=== PATIENT | female | born 1955 | race Caucasian/White ===

== ENCOUNTER 2018-09-21 14:27 | Day surgery (SDC) | payer OTHER ==
[~2018-09-21 14:27] MED LIST: DEXAMETHASONE INJ 10 MG/ML VIAL IV ONE; LIDOCAINE 1% 10 ML VIAL INJ ONE; PROPOFOL 200 MG/20 ML VIAL IV ONE; SODIUM CHLORIDE 0.9% 50 ML VIAL INJ ONE; ceFAZolin SODIUM 1 GM VIAL IVPB ONE; raNITIdine HCL INJ 25 MG/ML VIAL IV ONE
[2018-09-21] MEDS ORDERED: BUPIVACAINE 0.5% W/EPI 30 ML VIAL INJ ONE (14:36)
[2018-09-21] MEDS ORDERED: HYDROmorphone HCL INJ 2 MG/ML VIAL ONE ×2 (14:44→17:00)
[2018-09-21] MEDS ORDERED: SUGAMMADEX SODIUM 200 MG/2 ML VIAL IV ONE (14:44)
[2018-09-21] MEDS ORDERED: ROCURONIUM BROMIDE 10 MG/ML VIAL ONE (14:45)
[2018-09-21] MEDS ORDERED: MIDAZOLAM INJ 2 MG/2 ML VIAL ONE (14:45)
[2018-09-21] MEDS ORDERED: SCOPOLAMINE PATCH 1.5MG 1 EA TD ONE (14:47)
[2018-09-21] MEDS ORDERED: SODIUM CHLORIDE 0.9% 50 ML VIAL ONE (14:50)
[2018-09-21] MEDS ORDERED: ELECTROLYTE-A 1,000 ML IVS ONE (15:10)
[2018-09-21] MEDS ORDERED: ceFAZolin SODIUM 1 GM VIAL INJ ONE (15:15)
[2018-09-21] MEDS ORDERED: SODIUM CHLORIDE 0.9% 1,000 ML BAG IVS ONE (15:40)
[2018-09-21] MEDS ORDERED: KETAMINE HCL 100 MG/ML VIAL ONE (15:50)
[2018-09-21] MEDS ORDERED: SODIUM CHLORIDE 0.9% 1000ML 1,000 ML ONE (15:59)
[2018-09-21] MEDS ORDERED: KETOROLAC TROMETHAMINE INJ 30 MG/ML VIAL ONE (16:27)
[2018-09-21] MEDS ORDERED: MEPERIDINE HCL 50 MG/ML VIAL ONE (16:48)
[2018-09-21] MEDS ORDERED: LACTATED RINGERS 1,000 ML ONE (16:51)
[2018-09-21 18:11] VITALS: O2SAT 100
[2018-09-21 18:38] VITALS: BP 117/70; TEMP 98.2
--- NOTE | 2018-09-22 10:33 | OP ---
DATE OF PROCEDURE: 09/21/18 PREOPERATIVE DIAGNOSIS: Acute appendicitis. POSTOPERATIVE DIAGNOSIS: Acute appendicitis. PROCEDURE: Laparoscopic appendectomy. SURGEON: Rex Workman MD ANESTHESIA: General. FINDINGS: Acute suppurative nonperforated appendix. COMPLICATIONS: None. ESTIMATED BLOOD LOSS: Minimal. SPECIMEN: .Appendix. PLAN: Discharge. INDICATION: The patient is brought to the Emergency Room after being identified as having acute appendicitis on a CT scan that was done, ordered by her primary care physician so we were able to prepare her for surgery. Complete informed consent was given. PROCEDURE: The patient was brought to the operative suite in supine position. General anaesthesia was induced. She was prepped and draped in sterile fashion. 0.5% Marcaine with epinephrine was used along the incision sites, traction vein to the base of the umbilicus. A Veress needle was introduced. There was free flow of fluid into the peritoneal cavity which was insufflated to an appropriate level with CO2 gas. A 5 mm trochar was placed followed by the camera. There was no evidence of bleeding or bowel injury. The patient was positioned and the suprapubic and right lower quadrant ports were placed. The appendix was easily identified. It was very thick and indurated and adherent posteriorly, so I made a window through the mesoappendix and base of the appendix. The automatic stapler was placed and fired without difficulty with a white load. There was no bleeding at the stump. We then were able to use 2 reloads and staple it off at its indurated connection to the peritoneum laterally as it was difficult to dissect and this took the appendix off adequately. It was placed in the EndoCatch bag and removed. The staple line was examined, minimal irrigation and a small burst of cautery at the lateral vascular staple line was necessary, but there was excellent hemostasis. The suprapubic fascia was then closed with #0 Vicryl using the suture passers. They and tight and non-bleeding. The remaining trocars were removed. There was no bleeding from the trocar sites. The abdomen had been desufflated. The wounds were closed with Monocryl dressing applied. She was awakened and taken to Recovery to be discharged. #[id number] [facility]
== END 2018-09-21 15:25 | disposition home or self-care (01) ==
LOC: ER 14:27 → AMB 14:27 → ER 15:25
PROVIDERS: ATTEND Emergency Medicine
DX: K35.80 Unspecified acute appendicitis (principal); Z88.0 Allergy status to penicillin
CPT/HCPCS: 00840; 44970; A4216; J0690; J1100; J1170; J1885; J2175; J2250; J2780; J3490; J7030; J7120

== ENCOUNTER → 2018-09-21 | Outpatient (CLI) | payer OTHER ==
--- NOTE | 2018-09-21 13:19 | CT ---
EXAM DESCRIPTION: Abdomen/Pelvis w/wo Contrast CLINICAL HISTORY: 62 years Female, ABD PAIN POSSIBLE APPY COMPARISON: None. TECHNIQUE: Pre and postcontrast multidetector CT imaging of the abdomen pelvis was performed. Multiplanar reconstructions were generated. This exam was performed according to our departmental dose-optimization program which includes automated exposure control, adjustment of the mA and/or kV according to patient size and/or use of iterative reconstruction technique. FINDINGS: No pathologic calcification is demonstrated on the noncontrast portion of the study. Appendix wall thickening, dilatation and hyperenhancement with adjacent stranding is present within the right lower quadrant consistent with an acute appendicitis. No wing perforation or abscess formation is demonstrated. No free intraperitoneal gas. No thrombophlebitis. The lung bases are clear. The liver, gallbladder, pancreas, spleen, bilateral adrenal glands and bilateral kidneys are normal in appearance. The reproductive organs not visualized. No adnexal masses. No aggressive lytic or blastic osseous lesions are demonstrated within the lumbar spine or pelvis. IMPRESSION: Acute uncomplicated appearing appendicitis. Electronically signed by: Stephen Renteria MD 09/21/2018 1:18 PM CDT
== END ==
LOC: CT 11:57
PROVIDERS: ATTEND Physician Assistant
DX: K35.890 Other acute appendicitis without perforation or gangrene (principal)

== ENCOUNTER → 2019-12-19 | Outpatient (CLI) | payer BC, OTHER | LOC: GMAE 10:51 | PROVIDERS: ATTEND Family Medicine | DX: Z00.00 Encounter for general adult medical examination without abnormal findings (principal) ==